=== PATIENT | female | born 1950 | race Caucasian/White ===

== ENCOUNTER 2018-11-05 05:59 | Day surgery (SDC) | payer MEDICARE, OTHER ==
[2018-11-03 11:03] LABS: BASOPHILS # (AUTO) 0.1 X10'3 (0-0.2); BASOPHILS % (AUTO) 0.7 % (0-1); EOSINOPHILS % (AUTO) 0.3 % (0-6); HEMOGLOBIN 12.8 g/dl (12.0-16.0); LYMPHOCYTES % (AUTO) 23.4 % (21-51); MEAN CORPUSCULAR HGB CONC 33.7 g/dL (33.0-36.5); MEAN CORPUSCULAR VOLUME 86.1 FL (78-98); MEAN PLATELET VOLUME 7.9 FL (7.4-10.4); MONOCYTES # (AUTO) 0.4 X10'3 (0-0.9); MONOCYTES % (AUTO) 4.5 % (2-12); NEUTROPHILS # (AUTO) 6.2 X10'3 (1.8-7.7); NEUTROPHILS % (AUTO) 71.1 % (42-75); PLATELET COUNT 296 X10'3 (140-440); RED BLOOD COUNT 4.42 X10'6 (4.20-5.60); RED CELL DISTRIBUTION WIDTH 13.8 % (11.5-14.5); WHITE BLOOD COUNT 8.8 X10'3 (4.5-11.0)
[2018-11-03 11:13] LABS: PARTIAL THROMBOPLASTIN TIME 31 SECONDS (22-32)
[2018-11-03 11:15] LABS: ALANINE AMINOTRANSFERASE 22 U/L (12-78); ALBUMIN 3.8 G/DL (3.4-5.0); ALKALINE PHOSPHATASE 89 IU/L (46-116); ANION GAP 7 (8-16); ASPARTATE AMINO TRANSFERASE 19 U/L (10-37); BILIRUBIN,TOTAL 0.5 MG/DL (0.1-1.0); BLOOD UREA NITROGEN 11 MG/DL (7-18); BUN/CREATININE RATIO 15.9 (6.6-38.0); CALCIUM 9.4 MG/DL (8.5-10.1); CHLORIDE 107 MMOL/L (99-107); CREATININE 0.69 MG/DL (0.40-0.90); GLUCOSE 89 MG/DL (70-104); POTASSIUM 3.8 MMOL/L (3.5-5.1); SODIUM 141 MMOL/L (135-145); TOTAL CARBON DIOXIDE 27.2 MMOL/L (24-32); TOTAL PROTEIN 7.5 G/DL (6.4-8.2); eGFR 85 ML/MIN
[2018-11-05] VITALS (12 sets, daily range): BP systolic 123–147; BP diastolic 60–71
[~2018-11-05] VITALS: Ht 162.6 cm; Wt 68.4 kg
[2018-11-05] MEDS ORDERED: normal saline 1,000 ML IV SCH (06:20)
[2018-11-05] MEDS ORDERED: nitroGLYCERIN 0.4mg SUBLingual tab SL PRN (06:20)
[2018-11-05] MEDS ORDERED: LORazepam 0.5 MG tablet PO PRN (06:20)
[2018-11-05] MEDS ORDERED: diphenhydrAMINE 25mg capsule PO PRN (06:20)
[2018-11-05] MEDS ORDERED: FOLI-91 PO (06:32)
[2018-11-05] MEDS ORDERED: SIMV20TA5 PO (06:32)
[2018-11-05] MEDS ORDERED: midazolam 2 mg/2 ml injection ONE (07:37)
[2018-11-05] MEDS ORDERED: LIDOcaine 1% (10mg/ml)w/preservative injection 20ml MDV ONE (07:37)
[2018-11-05] MEDS ORDERED: fentaNYL/PF 50MCG/1 ML 2ML syringe ONE (07:37)
[2018-11-05] MEDS ORDERED: LIDOcaine 1% 30ml preserv. free vial ONE (07:38)
[2018-11-05] MEDS ORDERED: iohexol 350 MG/ML 50ML vial IV ONE (07:40)
[2018-11-05] MEDS ORDERED: iohexol 350MG/ML 100ml bottle IV ONE (07:40)
[2018-11-05] MEDS ORDERED: nitroGLYCERIN-Tridil 50MG/D5W 250 ML IV ONE (09:02)
[2018-11-05] MEDS ORDERED: HYDROcodone/acetaminophen 5mg/325mg tablet PO PRN (09:40)
[2018-11-05] MEDS ORDERED: HYDROcodone/acetaminophen 10/325mg tab PO PRN (09:40)
[2018-11-05] MEDS ORDERED: ondansetron/PF 4mg/2ml inj IV PRN (09:40)
[2018-11-05] MEDS ORDERED: OXAZEpam 15mg capsule PO PRN (09:40)
[2018-11-05] MEDS ORDERED: proCHLORperazine 10 MG/2 ml inj IV PRN (09:40)
== END 2018-11-05 16:00 | disposition home or self-care (01) ==
LOC: SSTAY O 05:59
PROVIDERS: ATTEND Internal Medicine Cardiovascular Disease
DX: I25.10 Atherosclerotic heart disease of native coronary artery without angina pectoris (principal); E78.5 Hyperlipidemia, unspecified; Z98.890 Other specified postprocedural states
CPT/HCPCS: 36415; 80053; 85025; 85610; 85730; 93005; 93458; 99152; A6257; C1760; C1769; J1644; J2001; J2250; J3010; J3490; J7030; Q0163; Q9967; 99153; A4620